=== PATIENT | female | born 1945 | race Caucasian/White ===

== ENCOUNTER 2021-12-01 08:38 | Day surgery (SDC) | payer MEDICARE, MEDICAID ==
[~2021-12-01] VITALS: Ht 162.6 cm; Wt 72.7 kg
[~2021-12-01 08:38] MED LIST: ACET-3068 PO; ATOR20TA PO; CLONAZEPAM; PANT40TA39 PO
[2021-12-01 08:50] VITALS: BP 133/39
[2021-12-01] MEDS ORDERED: LIDOcaine Viscous 15ml cup ONE (08:51)
[2021-12-01] MEDS ORDERED: MIDAZolam 1 MG/ML 5ML VIAL ONE ×2 (08:51)
[2021-12-01] MEDS ORDERED: fentaNYL/PF 50MCG/1 ML 2ML syringe ONE (08:51)
[2021-12-01] MEDS ORDERED: AMLO5TAB16 PO (09:08)
[2021-12-01] MEDS ORDERED: ONDA4TAB12 SL (09:08)
[2021-12-01] MEDS ORDERED: OMEP20CA16 PO (09:08)
[2021-12-01] MEDS ORDERED: ATOR20TA66 PO (09:08)
[2021-12-01 11:13] VITALS: BP 132/72
[2021-12-01 11:23] VITALS: BP_SYST 116; BP_SYST 124; BP_DIAS 67; BP_DIAS 69
[2021-12-01 11:43] VITALS: BP 122/66
== END 2021-12-01 11:58 | disposition home or self-care (01) ==
LOC: GI LAB 08:38
PROVIDERS: ATTEND Internal Medicine Gastroenterology
DX: Z09 Encounter for follow-up examination after completed treatment for conditions other than malignant neoplasm (principal); K29.50 Unspecified chronic gastritis without bleeding; K31.7 Polyp of stomach and duodenum; D12.5 Benign neoplasm of sigmoid colon; Z86.010 Personal history of colon polyps; K29.70 Gastritis, unspecified, without bleeding; K64.8 Other hemorrhoids; K21.9 Gastro-esophageal reflux disease without esophagitis; Z79.899 Other long term (current) drug therapy
CPT/HCPCS: 43239; 43251; 45380; 45381; 45385; 99153; C1773; G0500; J2250; J3010; J7030; Z7512; 88305; 88342; 99152; A4620

== ENCOUNTER 2024-01-27 08:40 | Outpatient (CLI) | payer MEDICARE, MEDICAID ==
[~2024-01-27 08:40] MED LIST changes: -ACET-3068 PO; +AMLO5TAB16 PO; -ATOR20TA PO; +ATOR20TA66 PO; -CLONAZEPAM; +OMEP20CA16 PO; +ONDA-243 SL; -PANT40TA39 PO
[2024-01-27 09:45] VITALS: PULSE 62; RESP 16; O2SAT 97
== END 2024-01-27 23:59 | disposition home or self-care (01) ==
LOC: RT 08:40
PROVIDERS: ATTEND Family Medicine
DX: R06.02 Shortness of breath (principal)
CPT/HCPCS: 94010; 94760

== ENCOUNTER 2024-09-05 10:23 | Outpatient (CLI) | payer MEDICARE, MEDICAID ==
--- NOTE | 2024-09-05 14:18 | RADIOLOGY REPORT ---
PROCEDURE: MR MRI HEAD INDICATION: FALL, INITIAL ENCOUNTER EXAM DATE: 09/05/2024 10:59 AM COMPARISON: None TECHNIQUE: MRI of the brain without intravenous contrast. FINDINGS: Diffusion weighted images of the brain demonstrate no evidence of acute infarction. There is no evidence of acute intracranial hemorrhage, extra-axial collection, mass effect, midline s hift, herniation or hydrocephalus. The ventricles, sulci and cisterns appear age appropriate. Mild changes of chronic microvascular ischemic disease. Partially empty sella. There are no signal abnormalities on the susceptibility weighted sequences. The major vascular flow voids are present. Left mastoid effusion. The surrounding soft tissues and osseous structures are unremarkable. IMPRESSION: 1. No evidence of acute infarction, intracranial hemorrhage, mass effect or hydrocephalus. Mild echevarria es of chronic microvascular ischemic disease. Partially empty sella. Left mastoid effusion. HS:Y
== END 2024-09-05 23:59 | disposition home or self-care (01) ==
LOC: MRI02 10:23
PROVIDERS: ATTEND Nurse Practitioner Occupational Health
DX: H70.92 Unspecified mastoiditis, left ear (principal); R51.9 Headache, unspecified
CPT/HCPCS: 70551